=== PATIENT | female | born 1995 | race Two or more races ===

== ENCOUNTER 2016-11-08 18:03 | Emergency (ER) | payer SELFPAY ==
[~2016-11-08] VITALS: Ht 149.9 cm; Wt 54.4 kg
[2016-11-08 18:31] VITALS: BP 125/64
--- NOTE | 2016-11-08 19:35 | PHYS DOC ---
Past Medical History Past Medical History: No Pertinent History Past Surgical History: No Surgical History Alcohol Use: None Drug Use: None Adult General Chief Complaint Chief Complaint: ABDOMINAL PAIN IN HPI HPI Patient is a 21 year old female who presents with abdominal pain. The patient is G 2P1 at approximately 8 weeks estimated gestational age. The patient's last menstrual period was September 10, 2016. Patient states that she found out she is 4 weeks ago while in the emergency department in [place]. Patient states that they attempted to confirm intrauterine at that time but were unable to see anything by ultrasound. Patient has not obtained care at this time. The patient states that she has been having intermittent upper abdominal pain that she rates as 6 out of 10 which has been sharp. Patient denies any association of pain after eating and denies any exacerbation of pain with movement. Patient has not had any nausea, vomiting, diarrhea. Patient does state that she has had headache but denies cough. Patient has noticed mild vaginal spotting although she is unsure if this is bleeding. Patient denies any pelvic pain or cramping. Patient denies any vaginal discharge. Review of Systems Review of Systems Constitutional: Denies fever or chills [] Eyes: Denies change in visual acuity, redness, or eye pain [] HENT: Denies nasal congestion or sore throat [] Respiratory: Denies cough or shortness of breath [] Cardiovascular: Denies chest pain or edema [] GI: Bowel pain, denies nausea, vomiting, bloody stools or diarrhea [] : Denies dysuria or hematuria [] Musculoskeletal: Denies back pain or joint pain [] Integument: Denies rash or skin lesions [] Neurologic: Denies headache, focal weakness or sensory changes [] Endocrine: Denies polyuria or polydipsia [] Allergies Allergies Allergies Coded Allergies Type Severity Reaction Last Updated Verified No Known Drug Allergies 11/08/16 No Physical Exam Physical Exam Constitutional: Alert, afebrile, no acute distress. [] HENT: Normocephalic, atraumatic, bilateral external ears normal, oropharynx moist, no oral exudates, nose normal. [] Eyes: PERRLA, EOMI, conjunctiva normal, no discharge. [] Neck: Normal range of motion, no tenderness, supple, no stridor. [] Cardiovascular:Heart rate regular rhythm, no murmur [] Lungs & Thorax: Bilateral breath sounds clear to auscultation [] Abdomen: Bowel sounds normal, soft, no tenderness, no masses, no pulsatile masses. Pelvic: Normal external exam, no blood in vaginal canal, cervical os closed, no cervical motion tenderness, no midline or bilateral adnexal tenderness on bimanual exam [] Skin: Warm, dry, no erythema, no rash. [] Back: No tenderness, no CVA tenderness. [] Extremities: No tenderness, no cyanosis, no clubbing, ROM intact, no edema. [] Neurologic: Alert and oriented X 3, normal motor function, normal sensory function, no focal deficits noted. [] Current Patient Data Vital Signs Vital Signs Date Time Temp Pulse Resp B/P Pulse Ox O2 Delivery O2 Flow Rate FiO2 11/08/16 18:31 99.0 87 20 125/64 100 Room Air 99.0 Lab Values Laboratory Tests Test 11/08/16 19:18 Urine Color Yellow Urine Clarity Clear Urine pH 6.0 Urine Specific [place] >=1.030 Urine Protein Negativemg/dL (NEG-TRACE) Urine Glucose (UA) Negativemg/dL (NEG) Urine Ketones (Stick) Negativemg/dL (NEG) Urine Blood Negative (NEG) Urine Nitrite Negative (NEG) Urine Bilirubin Negative (NEG) Urine Urobilinogen Dipstick 0.2mg/dL (0.2 mg/dL) Urine Leukocyte Esterase Negative (NEG) Urine RBC 0/HPF (0-2) Urine WBC Occ/HPF (0-4) Urine Squamous Epithelial Cells Occ/LPF Urine Bacteria Few/HPF (0-FEW) Urine Mucus Mod/LPF Influenza Type A Antigen Negative (NEGATIVE) Influenza Type B Antigen Negative (NEGATIVE) Microbiology 11/08/16 Wet Prep - Final, Complete EKG EKG Not performed [] Radiology/Procedures Radiology/Procedures Limited bedside transabdominal ultrasound performed and interpreted by myself: Intrauterine , heart rate 159 bpm, no pelvic free fluid, no adnexal masses [] Course & Med Decision Making Course & Med Decision Making Pertinent Labs and Imaging studies reviewed. (See chart for details) Patient's workup shows mild dehydration and presence of bacterial vaginosis. The patient will be started on Flagyl for treatment. Advised increase fluid intake. Patient was referred to Dr. Rayo of [facility] for follow-up. Advised return emergency department for any worsening symptoms. Patient voiced understanding and in agreement with treatment plan. Dragon Disclaimer Dragon Disclaimer This electronic medical record was generated, in whole or in part, using a voice recognition dictation system. Departure Departure Impression: Primary Impression: Bacterial vaginosis Additional Impressions: Abdominal pain during Dehydration Disposition: 01 HOME, SELF-CARE Condition: IMPROVED Referrals: NO PCP (PCP) FRENCH GILLIAM MD Patient Instructions: Abdominal Pain During , Bacterial Vaginosis Additional Instructions: Be sure to complete your antibiotics for treatment of bacterial vaginosis. It is recommended that he drink plenty of fluids. Start on a daily vitamin. Please follow-up with Dr. Rayo of [facility] for care. Return to the emergency department for any worsening symptoms. Scripts Metronidazole (Flagyl)500 Mg Tablet1 Tab PO BID #14 TAB Prov:FREYA VELAZQUEZ MD 11/08/16 Problem Qualifiers Additional Impressions: Abdominal pain during Trimester: first trimester Qualified Code: O26.891 - Other specified related conditions, first trimester FREYA VELAZQUEZ MD Nov 08, 2016 19:35
[2016-11-08 19:50] LABS: BILIRUBIN,URINE NEGATIVE (NEG); GLUCOSE,URINE NEGATIVE (NEG); NITRITE,URINE NEGATIVE (NEG); PROTEIN,URINE NEGATIVE (NEG-TRACE); UROBILINOGEN,URINE 0.2 mg/dL (0.2 mg/dL)
[2016-11-08 20:05] LABS: BACTERIA,URINE FEW /HPF (0-FEW); RBC,URINE 0 /HPF (0-2); SQUAMOUS EPITHELIAL CELL,UR OCC /LPF; WBC,URINE OCC /HPF (0-4)
[2016-11-08 20:33] LABS: OBC FLU VALID
[2016-11-08] MEDS ORDERED: METR500T PO (20:37)
== END 2016-11-08 20:43 | disposition home or self-care (01) ==
LOC: ER 18:03
DX: O23.591 Infection of other part of genital tract in pregnancy, first trimester (principal); N76.0 Acute vaginitis; B96.89 Other specified bacterial agents as the cause of diseases classified elsewhere; O99.281 Endocrine, nutritional and metabolic diseases complicating pregnancy, first trimester; E86.0 Dehydration; O26.891 Other specified pregnancy related conditions, first trimester; R51 Headache; Z3A.08 8 weeks gestation of pregnancy
CPT/HCPCS: 81001; 81025; 87491; 87591; 87804; 99285; Q0111

== ENCOUNTER 2016-11-12 19:55 | Emergency (ER) | payer SELFPAY ==
[~2016-11-12] VITALS: Ht 149.9 cm; Wt 49.9 kg
[~2016-11-12 19:55] MED LIST: METR500T PO
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
[2016-11-12] MEDS ORDERED: ACETAMINOPHEN 500 MG TABLET PO ONE (20:30)
[2016-11-12 23:00] VITALS: BP 125/65
[2016-11-12] MEDS ORDERED: PNV1TABL25 PO (23:26)
== END 2016-11-12 23:40 | disposition home or self-care (01) ==
LOC: ER 19:55
DX: O26.891 Other specified pregnancy related conditions, first trimester (principal); R10.11 Right upper quadrant pain; Z3A.08 8 weeks gestation of pregnancy; Y08.89XA Assault by other specified means, initial encounter; Y93.89 Activity, other specified; Y92.89 Other specified places as the place of occurrence of the external cause; Y99.8 Other external cause status
CPT/HCPCS: 81025; 99284